=== PATIENT | male | born 1940 | race Caucasian/White ===

== ENCOUNTER 2017-09-19 14:32 | Emergency (ER) | payer OTHER ==
[2017-09-19 14:37] VITALS: RESP 18; TEMP 97.9
--- NOTE | 2017-09-19 16:01 | EDPHY ---
H & P Time Seen by Provider: 09/19/17 15:55 HPI/ROS: CHIEF COMPLAINT: Skin tear HISTORY OF PRESENT ILLNESS: 77-year-old male presents to the emergency department with a skin tear to his left lower extremity. The patient accidentally cut his lower leg on something at home. He is not sure what. He did not think that it was bad until he saw some blood today. His advised he come to the emergency department for evaluation. He believes his tetanus shot is current. He denies any other trauma or injury. ROS: Denies numbness or tingling in his toes, retained foreign body. Denies pain in his left ankle or knee. Past Medical/Surgical History: AFib, gout, valve repair Social History: and lives in [place] Smoking Status: Former smoker Physical Exam: On examination the patient has a small 3 cm superficial skin tear to the left mid anterior lower leg. No active bleeding noted. No suturable lacerations noted. No palpable bony tenderness. No evidence of retained foreign body. No evidence of cellulitis or infection. Constitutional: Initial Vital Signs Temperature (C) 36.6 C 09/19/17 14:34 Heart Rate 75 09/19/17 14:34 Respiratory Rate 18 09/19/17 14:34 Blood Pressure 117/93 H 09/19/17 14:34 O2 Sat (%) 96 09/19/17 14:34 O2 Delivery Mode Room Air Allergies/Adverse Reactions: No Known Allergies Allergy (Verified 09/19/17 14:33) Home Medications: Medication Instructions Recorded Coumadin 12/03/09 Metoprolol 12/03/09 Allopurinol [Allopurinol 100 MG 100 mg PO DAILY 09/19/17 (*)] Aspirin EC [Aspirin EC 81 mg (*)] 81 mg PO DAILY 09/19/17 Losartan Potassium [Cozaar 50 mg 09/19/17 (*)] MDM/Departure - MDM Procedures: The wound was thoroughly cleansed and Mepitel dressing applied. ED Course/Re-evaluation: 77-year-old male presents to the emergency department with skin tear to the left lower leg. The wound was thoroughly cleansed and dressed. He understands that sutures in on indicated. Patient was given wound care precautions. - Depart Disposition: Home, Routine, Self-Care Clinical Impression: Noninfected skin tear of left leg Qualifiers: Encounter type: initial encounter Qualified Code(s): S81.812A - Laceration without foreign body, left lower leg, initial encounter Condition: Good Instructions: Skin Tear (ED), Acute Wounds (ED) Additional Instructions: Return if you notice any signs or symptoms of infection such as redness, swelling, increased pain, fever, purulent drainage. Keep wound dry, clean and protected. Referrals: Saul Osei MD [Medical Doctor] - 2-3 days, if not improved (Primary care provider nutrition associate)
[2017-09-19 16:08] VITALS: BP 133/74; PULSE 67; O2SAT 93
== END 2017-09-19 16:07 | disposition home or self-care (01) ==
DX: S81.812A Laceration without foreign body, left lower leg, initial encounter (principal); Z79.01 Long term (current) use of anticoagulants; Z87.891 Personal history of nicotine dependence; Z79.82 Long term (current) use of aspirin; W45.8XXA Other foreign body or object entering through skin, initial encounter; Y92.009 Unspecified place in unspecified non-institutional (private) residence as the place of occurrence of the external cause